=== PATIENT | female | born 1960 | race American Indian/Alaskan Native ===

== ENCOUNTER 2017-05-09 16:45 | Emergency (ER) | payer OTHER ==
--- NOTE | 2017-05-09 17:47 | ED PDOC ---
Arrival/HPI - General Chief Complaint: Trauma Time Seen by Provider: 05/09/17 17:16 Historian: Patient - History of Present Illness Narrative History of Present Illness (Text): 05/09/17 17:43 57-year-old female, presents to the emergency room after she tripped and fell, at [facility], states that she hit the R side of her face and sustained an abrasion, as well as an abrasion to the R elbow. Patient reports no other injury. Otherwise: (-) loss of consciousness, (-) nausea, (-) vomiting , (-) severe headache, (-) back pain, (-) neck pain, (-) other extremity injury , (-) subjective neurologic deficit, (-) anticoagulants. Has no history of prior significant head injury. Past Medical History - Provider Review Nursing Documentation Reviewed: Yes - Infectious Disease Hx of Infectious Diseases: None - Cardiac Hx Hypertension: Yes - Psychiatric Hx Substance Use: No - Surgical History Hx Hysterectomy: Yes Other/Comment: left ankle repair - Anesthesia Hx Anesthesia: Yes Hx Anesthesia Reactions: No Hx Malignant Hyperthermia: No Family/Social History - Physician Review Nursing Documentation Reviewed: Yes Family/Social History: No Known Family HX Smoking Status: Never Smoked Hx Alcohol Use: Yes Frequency of alcohol use: Socially Hx Substance Use: No Allergies/Home Meds Allergies/Adverse Reactions: Allergies No Known Allergies Allergy (Verified 05/09/17 17:06) Home Medications: Home Meds Medication Instructions Recorded Confirmed Olmesartan Medoxomil [Benicar] 40 mg PO DAILY 05/09/17 05/09/17 Review of Systems - Review of Systems Constitutional: Normal. absent: Fatigue, Weight Change, Fevers ENT: Normal. absent: Hearing Changes, Sore Throat, Epistaxis Respiratory: Normal. absent: SOB, Cough, Sputum Cardiovascular: Normal. absent: Chest Pain, Palpitations, Edema Gastrointestinal: Normal. absent: Abdominal Pain, Stool Changes Musculoskeletal: Normal. absent: Arthralgias, Back Pain, Neck Pain Skin: Normal, Other (abrasion). absent: Rash, Pruritis, Skin Lesions Neurological: Normal, Other (head injury). absent: Headache, Dizziness, Focal Weakness Physical Exam - Physical Exam Narrative Physical Exam (Text): 05/09/17 17:47 GENERAL APPEARANCE: Patient is awake, alert, oriented x 3, in no acute distress. SKIN: Warm, dry; (-) cyanosis. HEAD: Mild swelling of the right side of the forehead with an abrasion, no tenderness, with no palpable bony defect. EYES: (+) mildly injected conjunctiva to the medial aspect of the R eye, (-) conjunctival pallor, (-) scleral icterus, (-) nystagmus. ENMT: Mucous membranes moist. (-) Gonzales's sign. TMs: (-) blood. Nose: (- ) tenderness, (-) rhinorrhea. No oral trauma. Pharynx clear. Airway patent: (-) stridor. Full ROM of mandible without pain. NECK: (-) tenderness, (-) stiffness, (-) lymphadenopathy. CHEST AND RESPIRATORY: (-) chest wall tenderness. Lungs: (-) rales, (-) rhonchi, (-) wheezes; breath sounds equal bilaterally. HEART AND CARDIOVASCULAR: (-) irregularity; (-) murmur, (-) gallop. ABDOMEN AND GI: Soft; (-) tenderness. BACK: (-) tenderness. EXTREMITIES: (+) abrasion to the posterior R elbow, (-) deformity, (-) tenderness, (-) limitation of motion, distal pulses 2+. NEURO AND PSYCH: GCS=15. Mental status as above. Has full memory of episode; erp engineer: Pupils equal & reactive . EOMI. (-) facial asymmetry. Tongue and uvula midline. Strength 5/5 in all extremities. No gross sensory deficits. DTRs symmetric. Gait normal. Vital Signs Temp Pulse Resp BP Pulse Ox 05/09/17 17:01 98.6 F 85 19 131/88 98 Medical Decision Making ED Course and Treatment: 05/09/17 17:49 57 yo F s/p trip and fall, sustained abrasion to the R side of the face and R elbow. Tetanus UTD. Abrasions cleaned, bacitracin and clean dressing applied. Instructed on proper wound care and signs of infection. Pt advised to follow up with primary care physician in 1-2 days without fail for re-evaluation. Advised to take tylenol for pain. Return to the emergency room at any time for any new or worsening symptoms. Patient states she fully agrees with and understands discharge instructions. States that she agrees with the plan and disposition. Verbalized and repeated discharge instructions and plan. I have given the patient opportunity to ask any additional questions. - PA / ASTRONOMY DEPARTMENT CHAIR / Resident Statement MD/DO has reviewed & agrees with the documentation as recorded. Disposition/Present on Arrival - Present on Arrival Any Indicators Present on Arrival: No History of DVT/PE: No History of Uncontrolled Diabetes: No Urinary Catheter: No History of Decub. Ulcer: No History Surgical Site Infection Following: None - Disposition Have Diagnosis and Disposition been Completed?: Yes Diagnosis: Head injury, acute, Abrasion, Elbow contusion Disposition: HOME/ ROUTINE Disposition Time: 17:52 Patient Plan: Discharge Condition: STABLE Discharge Instructions (ExitCare): Head Injury (ED), Abrasion (ED), Contusion in Adults (ED) Print Language: MONGOLIAN Additional Instructions: Thank you for letting us take care of you today. You were treated for head injury, abrasions, elbow contusion. The emergency medical care you received today was directed at your acute symptoms. Take only tylenol for pain. It may take several days for your symptoms to resolve. Return to the Emergency Department if your symptoms worsen, do not improve, or if you have any other problems. Please contact your doctor in 2 days for re-evaluation and follow up. Bring any paperwork you were given at discharge with you along with any medications you are taking to your follow up visit. Our treatment cannot replace ongoing medical care by a primary care provider (PCP) outside of the emergency department. Thank you for allowing the [facility] [employer] team to be part of your care today. Referrals: Yaquelin Villatoro, [Primary Care Provider] - Follow up with primary Forms: WORK NOTE
[2017-05-09 18:19] VITALS: BP 112/71; PULSE 75; RESP 20; TEMP 98; O2SAT 100
== END 2017-05-09 18:20 | disposition home or self-care (01) ==
LOC: ED 16:45
DX: S09.90XA Unspecified injury of head, initial encounter (principal); S50.311A Abrasion of right elbow, initial encounter; S50.01XA Contusion of right elbow, initial encounter; W01.0XXA Fall on same level from slipping, tripping and stumbling without subsequent striking against object, initial encounter; Y92.89 Other specified places as the place of occurrence of the external cause; I10 Essential (primary) hypertension